=== PATIENT | female | born 1995 | race Caucasian/White ===

== ENCOUNTER 2018-01-01 15:10 | Emergency (ER) | payer OTHER ==
[2018-01-01 15:14] VITALS: BP 131/78
--- NOTE | 2018-01-01 15:27 | EDPHY ---
H & P Time Seen by Provider: 01/01/18 15:21 HPI/ROS: CHIEF COMPLAINT: Left index finger infection HISTORY OF PRESENT ILLNESS: 22-year-old immunocompetent female complaining of possible paronychia to her left index finger. Present for the past 3-5 days. No pain with range of motion. Fever no chills. No trauma. PHYSICAL EXAM (Prior to examination, patient consented to physical exam, hands were washed and my usual and customary physical exam procedures followed) 1) GENERAL: Well-developed, well-nourished, alert and oriented. Appears to be in no acute distress. 2) HEAD: Normocephalic 3) HEENT: sclera anicteric 4) LUNGS: Breathing comfortably. 5) SKIN: Left index finger positive paronychia. Negative kanavel sign. No evidence of felon. Smoking Status: Never smoked Constitutional: Initial Vital Signs Temperature (C) 37.0 C 01/01/18 15:13 Heart Rate 68 01/01/18 15:13 Respiratory Rate 18 01/01/18 15:13 Blood Pressure 131/78 H 01/01/18 15:13 O2 Sat (%) 97 01/01/18 15:13 O2 Delivery Mode Room Air Allergies/Adverse Reactions: No Known Allergies Allergy (Unverified 01/01/18 15:12) Home Medications: Medication Instructions Recorded Cephalexin [Keflex] 500 mg PO TID 7 Days cap 01/01/18 MDM/Departure - MDM Procedures: Procedure: Paronychia drainage. The patient's paronychia was located on the left index finger. I obtained verbal consent from the patient to drain the abscess who was informed about the possibility of bleeding and pain. Digital nerve block of 1% plain lidocaine administered by myself in usual and customary technique. The abscess was incised with a scalpel and a mild amount of purulent drainage was expressed. I irrigated the wound. The patient tolerated the procedure well. The procedure was performed by myself. - Depart Disposition: Home, Routine, Self-Care Clinical Impression: Paronychia of left index finger Condition: Good Instructions: Paronychia (ED) Additional Instructions: Return to the ER if you develop redness, swelling, discharge, warmth to the wound, red streaks going up your arm, or any other symptoms that concern you. Prescriptions: Cephalexin [Keflex] 500 mg PO TID 7 Days cap Referrals: ENRIQUE Rubio,. [Clinic] - 2-3 days, call for appt.
== END 2018-01-01 15:49 | disposition home or self-care (01) ==
PROC: 0H9GXZZ Drainage of Left Hand Skin, External Approach (ICD-10-PCS; principal; 2018-01-01)
DX: L03.012 Cellulitis of left finger (principal)